=== PATIENT | male | born 1955 | race Caucasian/White ===

== ENCOUNTER 2020-07-04 10:51 | Day surgery (SDC) | payer BC ==
[~2020-07-04] VITALS: Ht 198.1 cm; Wt 102.5 kg
[~2020-07-04 10:51] MED LIST: AMLO5; ASPI81CH PO; ASPI81EC PO; Hair, Skin & N1 EACH PO; LISI20; LISINOPRIL PO; OXYACE5T PO
[2020-07-04] MEDS ORDERED: MOBIC15 MG (11:16)
== END 2020-07-04 13:06 | disposition home or self-care (01) ==
LOC: ORSCSDS 10:51
PROVIDERS: Internal Medicine Gastroenterology
PROC: 0DBL8ZX Excision of Transverse Colon, Via Natural or Artificial Opening Endoscopic, Diagnostic (ICD-10-PCS; principal; 2020-07-04 12:00)
DX: Z12.11 Encounter for screening for malignant neoplasm of colon (principal); Z86.010 Personal history of colon polyps; D12.3 Benign neoplasm of transverse colon; K64.4 Residual hemorrhoidal skin tags; I10 Essential (primary) hypertension; Z79.899 Other long term (current) drug therapy
CPT/HCPCS: 88305; J2704; J7120

== ENCOUNTER 2021-07-18 15:21 | Emergency (ER) | payer BC ==
[~2021-07-18] VITALS: Ht 198.1 cm; Wt 102.1 kg
[~2021-07-18 15:21] MED LIST changes: +MOBIC15 MG
[2021-07-18] MEDS ORDERED: PRED20 PO (17:55)
== END 2021-07-18 18:07 | disposition home or self-care (01) ==
LOC: ER 15:21
DX: M25.561 Pain in right knee (principal); I10 Essential (primary) hypertension; Z79.899 Other long term (current) drug therapy
CPT/HCPCS: 93971; 99283-25; J7512

== ENCOUNTER 2022-08-25 08:16 | Day surgery (SDC) | payer BC, MEDICARE ==
[2022-08-25] VITALS (17 sets, daily range): BP systolic 118–152; BP diastolic 69–94
[~2022-08-25] VITALS: Ht 195.6 cm; Wt 105.6 kg
[~2022-08-25 08:16] MED LIST changes: -AMLO5; +AMLO5 PO; -LISI20; +LISI20 PO; +Loratadine10 MG PO; +MAGNESIUM PO; -MOBIC15 MG; +MOBIC15 MG PO; +MULVITA PO; +PRED20 PO; +VITAMIN D310 MC4 PO
[2022-08-25] MEDS ORDERED: ALBU2.5V5 INH (09:24)
--- NOTE | 2022-08-25 09:27 | NUR ---
Ambulatory in Day Surgery History, Chart, Medications and Allergies reviewed before start of procedure.Patient confirms NPO status and agrees with scheduled surgery. Pre-Op teaching done. Pt verbalizes understanding.
--- NOTE | 2022-08-25 12:50 | NUR ---
ARRIVAL TO UNIT: PT TRANSFERRED TO UNIT FROM PACU VIA HOSPITAL BED. S/P R TKA, POD 0. VSS. PT REPORTS NO PAIN AT THIS TIME, PLAN IS TO MEDICATE PER EMAR SPINAL ANESTHESIA WEARS OFF. NO REPORTS OF N/V, IS TOLERATING PO INTAKE. AWAITING POST-OP VOID. MINO WRAP & GAUZE DRESSING IN PLACE, NO DRAINAGE OR SHADOWING ASSESSED. PPP BILATERALLY, ABLE TO WIGGLE TOES. SEE ASSESSMENT FOR FURTHER INFO. FLUIDS INFUSING. PT/OT EVAL PENDING ON SPINAL ANESTHESIA RECOVERY. DARCIE HOSE ON LLE, BILATERAL SCDS CORRECTLY PLACED. COOLING DEVICE IN PLACE.
--- NOTE | 2022-08-25 13:40 | NUR ---
Pt. is awake and welcomes my visit. Spouse is present. Both Pt. and spouse are known to this project management manager outside the hospital. Pt. is pleasant and displays evidence of little pain or discomfort. This project management manager facilitates a life review and assessed Pts. expectations for recovery. Seek to normalize the Pt. experience. Pt. displays evidence of engagement, awareness, and motivation to begin rehab and resume his normal activities. Prayed with Pt. and Spouse. Both verbalize gratitude for the spiritual care visit.
--- NOTE | 2022-08-25 17:45 | NUR ---
UPDATE PT UNABLE TO VOID POST-OPERATION. REPORTS NUMBNESS IN GROIN AREA & MINOR INCONTINENCE. BLADDER SCAN PERFORMED. PT ATTEMPTED TO VOID, UNABLE TO DO SO. STRAIGHT CATH DONE. PT MOVED TO CHAIR, DOING WELL.
--- NOTE | 2022-08-25 18:07 | NUR ---
SHIFT SUMMARY S/P R TKA, POD 0. PT MEDICATED ONCE FOR PAIN. ABLE TO TOLERATE PO INTAKE W/ NO REPORT OF N/V. UP IN RM W/ SBA FWW, UP IN CHAIR FOR MEALS. WORKED W/ PT, DID WELL. UNABLE TO VOID, SEE NOTE. WILL REPORT TO ONCOMING NURSE
--- NOTE | 2022-08-26 04:48 | NUR ---
SHIFT SUMMARY PATIENT IS POD1 R TKA. MINO WRAP TO R KNEE IS C/D/I. POLAR CLAUS IN PLACE. PATIENT IS MEDICATED FOR PAIN AND TOLERATES WELL. ABLE TO WALK HALLS MULTIPLE TIMES THROUGHOUT SHIFT. PATIENT HAD A BLADDER SCAN OF [id number] AND WAS ABLE TO VOID SEVERAL TIMES SPONTANEOUSLY. PATIENT TOLERATES PO INTAKE AND DENIES N/V. PLAN FOR THERAPY IN AM AND DISCHARGE HOME. VSS, CALL LIGHT IN REACH WILL REPORT TO DAY RN.
[2022-08-26 05:55] LABS: BASOPHILS ABSOLUTE AUTO 0.01 K/mm3 (0.00-0.23); BASOPHILS PERCENT AUTO 0 % (0-2); EOSINOPHILS ABSOLUTE AUTO 0.02 K/mm3 (0.00-0.68); EOSINOPHILS PERCENT AUTO 0 % (0-6); Hematocrit 38.7 % (37.0-53.0); Hemoglobin 13.4 g/dL (13.5-17.5); IMMATURE GRAN ABSOLUTE AUTO 0.05 K/mm3 (0.00-0.10); IMMATURE GRAN PERCENT AUTO 0 % (0-1); LYMPHOCYTES PERCENT AUTO 10 % (21-46); MONOCYTES PERCENT AUTO 7 % (4-13); Mean Corpuscular HGB 29.1 pg (26.0-34.0); Mean Corpuscular HGB Conc 34.6 g/dL (31.5-36.5); Mean Corpuscular Volume 84 fL (80-100); Mean Platelet Volume 11.4 fL (9.1-12.4); NEUTROPHILS ABSOLUTE AUTO 10.05 K/mm3 (1.96-9.15); NEUTROPHILS PERCENT AUTO 83 % (41-73); Platelet Count 204 K/mm3 (150-400); RDW Coefficient Variation 12.1 % (11.7-14.2); RDW Standard Deviation 36.5 fL (35.1-46.3); Red Blood Cell Count 4.61 M/mm3 (4.30-5.90); White Blood Cell Count 12.13 K/mm3 (4.00-11.30)
[2022-08-26 06:21] LABS: Bun/Creatinine Ratio 18.8 (12.0-20.0); Calcium, Blood 9.2 mg/dL (8.5-10.1); Creatinine, Blood 1.28 mg/dL (0.60-1.20); Magnesium, Blood 2.2 mg/dL (1.6-2.4); Potassium, Blood 4.3 mmol/L (3.5-5.5)
[2022-08-26 06:55] VITALS: BP 115/67
[2022-08-26] MEDS ORDERED: OXAYDO5 M1 PO (09:08)
[2022-08-26] MEDS ORDERED: PROM25 PO (09:09)
[2022-08-26] MEDS ORDERED: SULTRIDS PO (09:10)
--- NOTE | 2022-08-26 09:51 | NUR ---
discharged reviewed dc instructions w/pt; verbalized understanding. passed PT. provided aquacel dressings. pt left unit in [place], accompanied by spouse with possessions, dc paperwork, dressings, and polar pack.
--- NOTE | 2022-08-26 10:13 | NUR ---
Spiritual Care Escort Pt. was being discharged, joined LASHAE as patient and spouse were escorted to their car in a WC. Offered pastoral residential youth counselor. Pt. displayed evidence of enaggement and strenth. Pt. verbalized gratitude for the spiritual care assistance.
== END 2022-08-26 09:43 | disposition home or self-care (01) ==
LOC: ORSCMMR 08:16 → ORD 10:45 → SURS 12:25 → ORSCMMR 08-26 09:43
PROVIDERS: Orthopaedic Surgery
PROC: 0SRC0J9 Replacement of Right Knee Joint with Synthetic Substitute, Cemented, Open Approach (ICD-10-PCS; principal; 2022-08-25 10:45)
DX: M17.11 Unilateral primary osteoarthritis, right knee (principal); I10 Essential (primary) hypertension; Z79.899 Other long term (current) drug therapy; Z86.16 Personal history of COVID-19
CPT/HCPCS: 36415; 73560-RT; 80048; 83735; 85025; 97110; 97116; 97162; A9270; C1713; C1776; J0171; J0690; J0735; J1885; J2250; J2704; J2795; J3010; J7120

== ENCOUNTER → 2023-04-14 | Outpatient (CLI) | payer BC ==
[~2023-04-14] MED LIST changes: +ALBU2.5V5 INH; +OXAYDO5 M1 PO; +PROM25 PO; +SULTRIDS PO
== END ==
LOC: LAB SHORT 16:33 → LAB 16:33
DX: R21 Rash and other nonspecific skin eruption (principal)
CPT/HCPCS: 87102

== ENCOUNTER → 2023-10-19 | Outpatient (CLI) | payer MEDICARE ==
[2023-10-19 15:28] LABS: Alanine Aminotransfer (ALT/SGP 29 U/L (12-78); Albumin, Blood 3.5 g/dL (3.4-5.0); Albumin/Globulin Ratio 1.2 (0.8-1.8); Alk Phos 97 U/L (50-136); Anion Gap 6 mmol/L (3-11); Aspartate Aminotrans (AST/SGOT 23 U/L (12-37); Bilirubin, Total 0.6 mg/dL (0.1-1.0); Blood Urea Nitrogen 20 mg/dL (8-24); Bun/Creatinine Ratio 20.8 (12.0-20.0); CHOL/HDL RATIO 2.4; CO2, Blood 28 mmol/L (21-32); Calcium, Blood 9.4 mg/dL (8.5-10.1); Chloride, Blood 111 mmol/L (98-108); Cholesterol 144 mg/dL (50-200); Creatinine, Blood 0.96 mg/dL (0.60-1.20); Globulin, Blood 2.9 g/dL (2.2-4.0); Glomerular Filtration Rate 87 (60-); Glucose, Blood 93 mg/dL (70-99); HDL Cholesterol 59 mg/dL (>39); LDL/HDL RATIO 1.2; Low Density Lipoprotein Chol 70 mg/dL (0-110); Potassium, Blood 4.2 mmol/L (3.5-5.5); Sodium, Blood 141 mmol/L (136-145); Total Protein, Blood 6.4 g/dL (6.4-8.2); Triglycerides 73 mg/dL (30-160); Very Low Density Lipoprot Chol 14 mg/dL (6-32)
== END ==
LOC: LAB SHORT 09:30 → LAB 09:30
PROVIDERS: Hospitalist
DX: I10 Essential (primary) hypertension (principal)
CPT/HCPCS: 80053; 80061